=== PATIENT | female | born 1960 | race Caucasian/White ===

== ENCOUNTER 2018-08-21 08:51 | Outpatient (CLI) | payer OTHER ==
[~2018-08-21 08:51] MED LIST: CHOL100012 PO; CITALOPRAM PO; FENOFIBRATE PO; LYSI500T PO; OLME1TAB28 PO; ROSU20TA2 PO
[2018-08-21] MEDS ORDERED: BIMA2.5D EACHEYE (09:21)
[2018-08-21] MEDS ORDERED: OLME20TA17 PO (09:21)
[2018-08-21] MEDS ORDERED: ROSU10TA2 PO (09:21)
[2018-08-21] MEDS ORDERED: BRIM5DRO2 EACHEYE (09:21)
[2018-08-21] MEDS ORDERED: FENO134C PO (09:21)
[2018-08-26] MEDS ORDERED: HYDR-3240 PO (16:17)
== END 2018-08-21 23:59 | disposition home or self-care (01) ==
LOC: STAR 08:51
PROVIDERS: ATTEND Surgery
DX: Z01.818 Encounter for other preprocedural examination (principal)
CPT/HCPCS: 93005

== ENCOUNTER 2018-08-26 06:30 | Observation (INO) | payer OTHER ==
[~2018-08-26] VITALS: Ht 160 cm; Wt 72.4 kg
[2018-08-26 07:29] VITALS: BP 140/84
== END 2018-08-26 17:55 | disposition home or self-care (01) ==
LOC: OR 06:30 → 4NOR 12:53 → OUT 12:57
PROVIDERS: ADMIT Surgery; ATTEND Surgery
DX: C50.411 Malignant neoplasm of upper-outer quadrant of right female breast (principal); F32.9 Major depressive disorder, single episode, unspecified; I10 Essential (primary) hypertension; Z86.73 Personal history of transient ischemic attack (TIA), and cerebral infarction without residual deficits; E78.00 Pure hypercholesterolemia, unspecified; Z79.899 Other long term (current) drug therapy; Z91.048 Other nonmedicinal substance allergy status; Z87.891 Personal history of nicotine dependence
CPT/HCPCS: 19303; 36556; 38525; 38792; 77001; 88305; 88307; 88333; 96374; A9541; C1729; C1788; G0378; J0330; J0690; J1100; J1644; J2250; J2405; J2704; J3010; J7120

== ENCOUNTER 2018-09-09 09:02 | Day surgery (SDC) | payer OTHER ==
[~2018-09-09] VITALS: Ht 160 cm; Wt 71.3 kg
[~2018-09-09 09:02] MED LIST changes: +BIMA2.5D EACHEYE; +BRIM5DRO2 EACHEYE; +FENO134C PO; +HYDR-3240 PO; -LYSI500T PO; +LYSI500T8 PO; +OLME20TA17 PO; +ROSU10TA2 PO
[2018-09-09 09:35] VITALS: BP 131/77
[2018-09-09] MEDS ORDERED: BUPIVACAINE/PF-EPI 0.5% 1:200K ONE (09:38)
[2018-09-09] MEDS ORDERED: FENTANYL PF 100 MCG/2ML ONE (10:27)
[2018-09-09] MEDS ORDERED: MIDAZOLAM 1 MG/ML, 2ML ONE (10:27)
[2018-09-09] MEDS ORDERED: GABAPENTIN 300 MG CAPSULE PO ONE (10:30)
[2018-09-09] MEDS ORDERED: ACETAMINOPHEN 500 MG TABLET PO ONE (10:30)
[2018-09-09] MEDS ORDERED: LACTATED RINGERS 1,000 ML IV SCH (10:31)
[2018-09-09] MEDS ORDERED: SCOPOLAMINE PATCH, 1.5MG PATCH.TD72 TD ONE (11:01)
[2018-09-09] MEDS ORDERED: KETOROLAC 30 MG/1 ML ONE (11:15)
[2018-09-09] MEDS ORDERED: PROPOFOL 10 MG/ML, 20ML ONE (11:30)
[2018-09-09] MEDS ORDERED: HYDROmorphone 2 MG/ML, 1ML IVPush PRN (11:30)
[2018-09-09] MEDS ORDERED: hydrALAzine 20 MG/ML, 1ML IV PRN (11:30)
[2018-09-09] MEDS ORDERED: MIDAZOLAM 1 MG/ML, 2ML IV PRN (11:30)
[2018-09-09] MEDS ORDERED: ONDANSETRON 2MG/ML, 2ML IV PRN (11:30)
[2018-09-09] MEDS ORDERED: ONDANSETRON 2MG/ML, 2ML ONE (11:30)
[2018-09-09] MEDS ORDERED: FENTANYL PF 100 MCG/2ML IV PRN (11:30)
[2018-09-09] MEDS ORDERED: CEFAZOLIN 1,000 MG ONE (11:30)
[2018-09-09] MEDS ORDERED: ALBUTEROL/IPRATROPIUM 2.5MG/0.5MG, 3 ML NPPB PRN (11:30)
[2018-09-09] MEDS ORDERED: DEXAMETHASONE 4 MG/ML, 1ML ONE (11:30)
[2018-09-09] MEDS ORDERED: OXYcodone 5 MG/5 ML ORAL.SOL UDC PO PRN (11:30)
[2018-09-09] MEDS ORDERED: PROMETHAZINE 25 MG/ML, 1ML IV PRN (11:30)
== END 2018-09-09 14:30 | disposition home or self-care (01) ==
LOC: OUT 09:02
PROVIDERS: ATTEND Surgery
DX: C50.411 Malignant neoplasm of upper-outer quadrant of right female breast (principal); I10 Essential (primary) hypertension; E78.5 Hyperlipidemia, unspecified; F32.9 Major depressive disorder, single episode, unspecified; E78.00 Pure hypercholesterolemia, unspecified; Z17.1 Estrogen receptor negative status [ER-]; Z79.899 Other long term (current) drug therapy; Z87.891 Personal history of nicotine dependence; Z91.048 Other nonmedicinal substance allergy status; Z90.12 Acquired absence of left breast and nipple; Z98.890 Other specified postprocedural states; Z80.3 Family history of malignant neoplasm of breast; Z82.61 Family history of arthritis; Z83.3 Family history of diabetes mellitus; Z82.49 Family history of ischemic heart disease and other diseases of the circulatory system; Z83.49 Family history of other endocrine, nutritional and metabolic diseases
CPT/HCPCS: 19301; 88307; C1729; J0690; J1100; J1885; J2250; J2405; J2704; J3010; J7120

== ENCOUNTER 2019-04-16 10:01 | Outpatient (CLI) | payer OTHER | END 2019-04-16 23:59 | disposition home or self-care (01) | LOC: ROC 10:01 | PROVIDERS: ATTEND Radiology Radiation Oncology | DX: C50.411 Malignant neoplasm of upper-outer quadrant of right female breast (principal); Z85.3 Personal history of malignant neoplasm of breast; Z90.12 Acquired absence of left breast and nipple | CPT/HCPCS: 99214; G0463 ==